=== PATIENT | male | born 1990 | race Native Hawaiian/Other Pacific Islander ===

== ENCOUNTER 2017-10-03 13:16 | Emergency (ER) | payer OTHER ==
[2017-10-03 13:20] VITALS: BMI 22.6
[2017-10-03 13:23] VITALS: BP 125/79; PULSE 78; RESP 18; TEMP 97.2; O2SAT 100
[2017-10-03 13:47] LABS: BASO # 0.06 K/mm3 (0.0-2.0); BASO % 0.9 % (0.0-3.0); EOS # 0.2 (0.0-0.7); EOS % 3.5 % (1.5-5.0); GRAN # 2.9 (1.4-6.5); GRAN % 43.8 % (50.0-68.0); HEMATOCRIT 42.2 % (42.0-52.0); LYMPH % 45.2 % (22.0-35.0); MEAN CELL VOLUME 86.5 fl (80.0-105.0); MEAN CORPUSCULAR HEMOGLOBIN 30.3 pg (25.0-35.0); MEAN CORPUSCULAR HGB CONC 35.1 g/dl (31.0-37.0); MEAN PLATELET VOLUME 9.9 fl (7.0-11.0); MONO # 0.4 (0.1-0.6); MONO % 6.6 % (1.0-6.0); RED CELL DISTRIBUTION WIDTH 11.7 % (11.5-14.5); WHITE BLOOD COUNT 6.6 10^3/ul (4.5-11.0)
[2017-10-03 14:08] LABS: ALB/GLOB RATIO 1.5 (1.1-1.8); ALKALINE PHOSPHATASE 73 U/L (38-126); ALT/SGPT 58 U/L (7-56); AMYLASE 83 U/L (35-125); AST/SGOT 48 U/L (17-59); BILIRUBIN,TOTAL 0.9 mg/dL (0.2-1.3); BLOOD UREA NITROGEN 19 mg/dL (7-21); CALCIUM 9.8 mg/dL (8.4-10.5); CARBON DIOXIDE 25 mmol/L (21-33); CHLORIDE 103 mmol/L (98-107); GFR AFRICAN-AMERICAN > 60; GLUCOSE,RANDOM 96 mg/dL (70-110); SODIUM 141 mmol/L (132-148); TOTAL PROTEIN 8.4 g/dL (5.8-8.3)
[2017-10-03 14:12] LABS: URINE BILIRUBIN NEGATIVE (NEGATIVE); URINE BLOOD NEGATIVE (NEGATIVE); URINE GLUCOSE (UA) NEGATIVE (NEGATIVE); URINE KETONE NEGATIVE (NEGATIVE); URINE LEUKOCYTE ESTERASE NEGATIVE Leu/uL (NEGATIVE); URINE PROTEIN NEGATIVE mg/dL (<30 mg/dL); URINE UROBILINOGEN 0.2 E.U./dL (<1 E.U./dL)
[2017-10-03 14:13] LABS: URINE APPEARANCE CLEAR (CLEAR); URINE COLOR YELLOW (YELLOW)
--- NOTE | 2017-10-03 14:48 | ED PDOC ---
Arrival/HPI - General Chief Complaint: Medical Clearance Time Seen by Provider: 10/03/17 13:24 Historian: Patient - History of Present Illness Narrative History of Present Illness (Text): 10/03/17 14:45 27-year-old male presents today with a puncture wound to the left thumb. Patient states that he was closing the patient in the operating room and stuck himself with a suture needle. Patient states blood was drawn. Patient states he cleaned the wound very well. Patient states the source has hepatitis C but had recent test with a negative and HIV. Patient denies pain. No other complaints incident occurred prior to arrival. Symptom Onset: Sudden Symptom Course: Improving Past Medical History - Provider Review Nursing Documentation Reviewed: Yes - Travel History Have you recently traveled outside [place] w/in the past 3 mons?: No - Infectious Disease Hx of Infectious Diseases: None - Tetanus Immunization Tetanus Immunization: Up to Date (2013) - Cardiac Other/Comment: Hypertriglyceridimia - Psychiatric Hx Substance Use: No - Anesthesia Hx Anesthesia: No Family/Social History - Physician Review Nursing Documentation Reviewed: Yes Family/Social History: Unknown Family HX Smoking Status: Light Smoker < 10 Cigarettes Daily Hx Alcohol Use: No Hx Substance Use: No Allergies/Home Meds Allergies/Adverse Reactions: Allergies No Known Allergies Allergy (Verified 10/03/17 13:20) Home Medications: Home Meds Medication Instructions Recorded Confirmed RX: No Known Home Med 10/03/17 10/03/17 Review of Systems - Review of Systems Constitutional: absent: Fatigue, Fevers Respiratory: absent: SOB, Cough Cardiovascular: absent: Chest Pain, Palpitations Gastrointestinal: absent: Abdominal Pain Genitourinary Male: absent: Dysuria Musculoskeletal: absent: Arthralgias Skin: Other (puncture wound) Physical Exam Vital Signs Reviewed: Yes Vital Signs Temp Pulse Resp BP Pulse Ox 10/03/17 13:23 97.2 F L 78 18 125/79 100 Temperature: Afebrile Blood Pressure: Normal Pulse: Regular Respiratory Rate: Normal Appearance: Positive for: Well-Appearing, Non-Toxic, Comfortable Pain Distress: None Mental Status: Positive for: Alert and Oriented X 3 - Systems Exam Head: Present: Atraumatic Respiratory/Chest: Present: Clear to Auscultation Upper Extremity: Present: Normal ROM, NORMAL PULSES, Neurovascularly Intact, Capillary Refill < 2s, Other (left thumb; there is a small puncture wound noted to volar aspect of thumb without bleeding, without edema, without erythema or tenderness. ). No: Tenderness, Swelling, Erythema, Deformity Neurological: Present: GCS=15 Skin: Present: Warm, Dry Psychiatric: Present: Alert, Oriented x 3 Medical Decision Making ED Course and Treatment: 10/03/17 14:44 pt non toxic well appearing; no distress. pt with needlestick to left thumb. tetanus up to date. Source patient: Positive for hepatitis C negative for HIV Risk and benefits of HIV prophylaxis discussed with the patient in depth. Patient has refused HIV prophylaxis. i again offered HIV prophylaxis to the patient and he again refused. Patient was advised to follow-up with [employer] [facility] on the next business day. He is advised to immediately return if symptoms worsen or persist or if new concerning symptoms develop. I've advised the patient to keep the wound clean and dry. Advised applying bacitracin twice daily. Impression: Needle stick follow-up with employee health tomorrow. Keep the wound clean and dry. Apply bacitracin twice daily Return immediately if symptoms worsen persists or if new concerning symptoms develop - Lab Interpretations Lab Results: 10/03/17 13:30 10/03/17 13:30 Lab Results 10/03/17 13:30: Urine Color Yellow, Urine Appearance Clear, Urine pH 6.0, Ur Specific [place] 1.020, Urine Protein Negative, Urine Glucose (UA) Negative, Urine Ketones Negative, Urine Blood Negative, Urine Nitrate Negative, Urine Bilirubin Negative, Urine Urobilinogen 0.2, Ur Leukocyte Esterase Negative 10/03/17 13:30: RPR Nonreactive 10/03/17 13:30: HIV 1&2 Antibody Screen Negative 10/03/17 13:30: Hep Bs Antibody Positive 10/03/17 13:30: Hepatitis A IgM Ab Negative, Hep Bs Antigen Negative, Hep B Core IgM Ab Pending, Hepatitis C Antibody Negative 10/03/17 13:30: Sodium 141, Potassium 4.0, Chloride 103, Carbon Dioxide 25, Anion Gap 18, BUN 19, Creatinine 1.0, Est GFR ( Amer) > 60, Est GFR (Non- Af Amer) > 60, Random Glucose 96, Calcium 9.8, Total Bilirubin 0.9, AST 48, ALT 58 H, Alkaline Phosphatase 73, Total Protein 8.4 H, Albumin 5.1 H, Globulin 3.3 , Albumin/Globulin Ratio 1.5, Amylase 83 10/03/17 13:30: WBC 6.6, RBC 4.88, Hgb 14.8, Hct 42.2, MCV 86.5, MCH 30.3, MCHC 35.1, RDW 11.7, Plt Count 245, MPV 9.9, Gran % 43.8 L, Lymph % (Auto) 45.2 H, [place] % (Auto) 6.6 H, Eos % (Auto) 3.5, Baso % (Auto) 0.9, Gran # 2.90, Lymph # 3.0, [place] # 0.4, Eos # 0.2, Baso # 0.06 Disposition/Present on Arrival - Present on Arrival Any Indicators Present on Arrival: No History of DVT/PE: No History of Uncontrolled Diabetes: No Urinary Catheter: No History of Decub. Ulcer: No History Surgical Site Infection Following: None - Disposition Have Diagnosis and Disposition been Completed?: Yes Diagnosis: Needlestick injury of finger Disposition: HOME/ ROUTINE Disposition Time: 14:43 Patient Plan: Discharge Condition: GOOD Discharge Instructions (ExitCare): Needle Stick Injuries (ED) Additional Instructions: follow-up with employee health tomorrow. Keep the wound clean and dry. Apply bacitracin twice daily Return immediately if symptoms worsen persists or if new concerning symptoms develop [facility] Employee Regarding your Work Related Injury, you are instructed to do all of the following by next day: 1. Notify [facility] Employee Health Department of the sustained injury and arrange for any follow-up appointments if needed during the next business day. If the office is closed or no answer is received, please leave a detailed voice message. Message should include your full name, department and manager workers compensation, date of injury, date of ED visit if applicable. Employee Health can be reached at [phone]. 2. If there is time lost, notify [facility] Human Resources Department of the work related injury the next business day at [phone]. Referrals: Audi Teixeira MD [Staff Provider] - Follow up with primary Forms: [employer] (Malay)
== END 2017-10-03 15:11 | disposition home or self-care (01) ==
LOC: ED 13:16
DX: S61.032A Puncture wound without foreign body of left thumb without damage to nail, initial encounter (principal); W46.0XXA Contact with hypodermic needle, initial encounter; Y92.234 Operating room of hospital as the place of occurrence of the external cause; Y99.0 Civilian activity done for income or pay